=== PATIENT | female | born 1995 | race Caucasian/White ===

== ENCOUNTER 2020-07-06 18:20 | Outpatient (CLI) | payer OTHER ==
[~2020-07-06 18:20] MED LIST: BACTRIM 400-801 EACH PO; BACTRIM DS TAB1 EACH PO; BACTROBAN OINT22 GM EXT; BENTYL 20MG TAB20 MG PO; CEFUROXIME500 MG PO; IBU400 MG PO; K-DUR TAB 20 M20 MEQ PO; KEFLEX CAP 500500 MG PO; LODINE CAP 300300 MG PO; PYRIDIUM100 MG PO; PYRIDIUM200 MG PO; ZOFRAN ODT 4 MG4 MG PO; ZOFRAN4 MG PO
[2020-09-05] MEDS ORDERED: HYDROCODONE-AC1 EAC1 PO (04:38)
[2020-09-05] MEDS ORDERED: IBUPROFEN800 MG PO (04:38)
[2020-09-05] MEDS ORDERED: DOCUSATE SODIU100 MG PO (04:38)
[2020-09-05] MEDS ORDERED: FERRO-TIME325 MG PO (04:38)
== END 2020-07-06 19:34 | disposition home or self-care (01) ==
LOC: GENOP 18:20
PROVIDERS: Obstetrics & Gynecology
DX: O62.9 Abnormality of forces of labor, unspecified (principal); Z3A.38 38 weeks gestation of pregnancy
CPT/HCPCS: 80307; 81001; G0463

== ENCOUNTER 2020-09-05 00:59 | Inpatient (IN) | payer OTHER ==
[~2020-09-05] VITALS: Ht 165.1 cm; Wt 108.0 kg
[2020-09-05 02:14] LABS: HEMOGLOBIN 7.8 gm/dl (12.3-15.3); RED BLOOD COUNT 3.07 M/UL (4.00-5.10); WHITE BLOOD COUNT 11.6 K/UL (4.5-11.0)
[2020-09-05 03:26] LABS: BUN/CREATININE RATIO 16 (0-10)
[2020-09-05] MEDS ORDERED: HYDROCODONE-AC1 EAC1 PO (04:38)
[2020-09-05] MEDS ORDERED: DOCUSATE SODIU100 MG PO (04:38)
[2020-09-05] MEDS ORDERED: FERRO-TIME325 MG PO (04:38)
[2020-09-05] MEDS ORDERED: IBUPROFEN800 MG PO (04:38)
[2020-09-05 12:15] LABS: HEMOGLOBIN 7.6 gm/dl (12.3-15.3)
[2020-09-06 06:27] LABS: HEMOGLOBIN 7.2 gm/dl (12.3-15.3)
[2020-09-06 07:11] LABS: RPR Non Reactive (Non Reactive)
== END 2020-09-08 16:45 | disposition home or self-care (01) | DRG 787 ==
LOC: GENOP 00:59 → OB 02:00 → CDU 02:00 → OB 02:02
PROVIDERS: ADMIT Obstetrics & Gynecology
PROC: 3E0234Z Introduction of Serum, Toxoid and Vaccine into Muscle, Percutaneous Approach (ICD-10-PCS; 2020-09-05)
PROC: 10D00Z1 Extraction of Products of Conception, Low, Open Approach (ICD-10-PCS; principal; 2020-09-05 03:34)
DX: O34.211 Maternal care for low transverse scar from previous cesarean delivery (principal); O99.324 Drug use complicating childbirth; O98.42 Viral hepatitis complicating childbirth; N85.8 Other specified noninflammatory disorders of uterus; Z3A.38 38 weeks gestation of pregnancy; Z37.0 Single live birth; F15.10 Other stimulant abuse, uncomplicated; F12.10 Cannabis abuse, uncomplicated; B19.20 Unspecified viral hepatitis C without hepatic coma; O99.02 Anemia complicating childbirth; D50.9 Iron deficiency anemia, unspecified; O13.4 Gestational [pregnancy-induced] hypertension without significant proteinuria, complicating childbirth; Z20.822 Contact with and (suspected) exposure to COVID-19; Z23 Encounter for immunization; O99.344 Other mental disorders complicating childbirth; F32.9 Major depressive disorder, single episode, unspecified; O75.89 Other specified complications of labor and delivery; G43.909 Migraine, unspecified, not intractable, without status migrainosus
CPT/HCPCS: 36415; 80053; 80307; 81001; 82570; 82800; 83518; 83615; 83735; 84156; 84550; 85014; 85018; 85025; 86592; 86850; 86900; 86901; 86920; 90715; C9113; J0595; J1170; J1885; J2250; J2274; J2405; J2550; J2590; J2704; J3010; J3475; J7120; U0002

== ENCOUNTER 2021-01-15 11:16 | Emergency (ER) | payer OTHER ==
[~2021-01-15 11:16] MED LIST changes: +DOCUSATE SODIU100 MG PO; +FERRO-TIME325 MG PO; +HYDROCODONE-AC1 EAC1 PO; +IBUPROFEN800 MG PO
[2021-01-15 12:31] LABS: HEMOGLOBIN 10.6 gm/dl (12.3-15.3); RED BLOOD COUNT 4.06 M/UL (4.00-5.10); WHITE BLOOD COUNT 4.8 K/UL (4.5-11.0)
[2021-01-15 12:49] LABS: BUN/CREATININE RATIO 17 (0-10)
[2021-01-16 11:14] LABS: HBSAG SCREEN Negative (Negative); HEP A AB, IGM Negative (Negative); HEP B CORE AB, IGM Negative (Negative); HEP C VIRUS AB >11.0 (0.0-0.9)
== END 2021-01-15 18:11 | disposition home or self-care (01) ==
LOC: ER1 11:16
PROVIDERS: Physician Assistant
DX: R10.11 Right upper quadrant pain (principal); R11.0 Nausea; R06.02 Shortness of breath; I10 Essential (primary) hypertension; F17.200 Nicotine dependence, unspecified, uncomplicated
CPT/HCPCS: 80053; 80074; 81001; 84703; 85025; 99284; Q9967

== ENCOUNTER 2021-11-10 07:34 | Inpatient (IN) | payer OTHER ==
[~2021-11-10] VITALS: Ht 165.1 cm; Wt 112.5 kg
[2021-11-10 09:39] LABS: RED BLOOD COUNT 3.33 M/UL (4.00-5.10)
[2021-11-10] MEDS ORDERED: PRENATAL VITAM1 EAC3 PO (10:37)
[2021-11-10] MEDS ORDERED: FERROUS SULFAT325 MG PO (10:52)
[2021-11-10] MEDS ORDERED: IBUPROFEN600 MG PO (10:52)
[2021-11-10] MEDS ORDERED: HYDROCODON-ACE1 EAC4 PO (10:52)
[2021-11-10] MEDS ORDERED: DOCUSATE SODIU100 MG PO (10:52)
[2021-11-13] MEDS ORDERED: TRANDATE 200 M200 MG GT (22:00)
[2021-11-13] MEDS ORDERED: LABETALOL HCL200 MG PO (22:08)
[2021-11-16 16:11] LABS: AMPHETAMINE Positive (.); AMPHETAMINE GC/MS CONF 1031 ng/mL (Cutoff=500); AMPHETAMINES Positive (Cutoff=1000); AMPHETAMINES, URINE See Final Results ng/mL (Cutoff=1000); BARBITURATE Negative ng/mL (Cutoff=200); BENZODIAZEPINES Negative ng/mL (Cutoff=200); CANNABINOIDS Negative ng/mL (Cutoff=20); COCAINE (METABOLITE) Negative ng/mL (Cutoff=300); CREATININE 54.8 mg/dL (20.0-300.0); MEPERIDINE Negative ng/mL (Cutoff=200); METHADONE Negative ng/mL (Cutoff=300); METHAMPHETAMINE Positive (.); METHAMPHETAMINE GC/MS CONF >3000 ng/mL (Cutoff=500); OPIATES Negative ng/mL (Cutoff=300); PHENCYCLIDINE Negative ng/mL (Cutoff=25); PROPOXYPHENE Negative ng/mL (Cutoff=300)
== END 2021-11-13 22:16 | disposition left against medical advice (07) | DRG 787 ==
LOC: GENOP 07:34 → OB 12:16
PROVIDERS: Obstetrics & Gynecology; ADMIT Obstetrics & Gynecology
PROC: 3E0234Z Introduction of Serum, Toxoid and Vaccine into Muscle, Percutaneous Approach (ICD-10-PCS; 2021-11-10)
PROC: 10D00Z1 Extraction of Products of Conception, Low, Open Approach (ICD-10-PCS; principal; 2021-11-10 11:33)
DX: O10.92 Unspecified pre-existing hypertension complicating childbirth (principal); F11.20 Opioid dependence, uncomplicated; O98.42 Viral hepatitis complicating childbirth; O99.324 Drug use complicating childbirth; F12.10 Cannabis abuse, uncomplicated; O32.8XX0 Maternal care for other malpresentation of fetus, not applicable or unspecified; O99.344 Other mental disorders complicating childbirth; F32.A Depression, unspecified; B19.20 Unspecified viral hepatitis C without hepatic coma; Z37.0 Single live birth; Z3A.38 38 weeks gestation of pregnancy; Z98.890 Other specified postprocedural states; Z28.310 Unvaccinated for COVID-19; Z82.49 Family history of ischemic heart disease and other diseases of the circulatory system; Z83.3 Family history of diabetes mellitus; Z82.5 Family history of asthma and other chronic lower respiratory diseases; Z82.0 Family history of epilepsy and other diseases of the nervous system; Z23 Encounter for immunization
CPT/HCPCS: 36415; 80307; 81001; 82800; 84112; 85014; 85018; 85025; 90707; 90715; C9113; J0690; J1170; J1650; J2250; J2370; J2405; J2550; J2590; J2704; J2795; J3010